=== PATIENT | male | born 1985 | race Caucasian/White ===

== ENCOUNTER 2019-05-10 16:19 | Inpatient (IN) | payer MEDICAID ==
[2019-05-10] MEDS ORDERED: Sodium Chloride 0.9% 1,000 ML IV ONE (16:34)
--- NOTE | 2019-05-10 16:41 | ED Physician Chart ---
ED Chief Complaint/HPI - Patient Information Date Seen:: 05/10/19 Time Seen:: 16:25 Chief Complaint:: J/G-Tube Dysfunction History of Present Illness:: onset x 3 hours of j/g-tube dysfunction; no report of trauma, H/As, neck pain, C /P, SOB, Abd. Pain, A/N/V/D/C, fever, chills, or urinary s/s; pt's last tetanus shot: < 5 years; UTD Allergies:: Allergies Allergy/AdvReac Type Severity Reaction Status Date / Time Egg Derived Allergy Verified 04/19/19 16:16 Penicillins [PCN] Allergy Verified 04/19/19 16:15 Vitals:: Vital Signs - 8 hr 05/10/19 16:25 Temp 98.3 F HR 66 RR 16 BP 96/38 O2 Sat % 96 Historian:: Patient, EMS Review:: Nurse's Note Reviewed, Old Chart Reviewed, EMS run form Reviewed ED Review of Systems - Review of Systems General/Constitutional: No fever, No chills, No weight loss, No weakness, No diaphoresis, No edema, No loss of appetite Skin: No skin lesions, No rash, No bruising Head: No headache, No light-headedness Eyes: No loss of vision, No pain, No diplopia ENT: No earache, No nasal drainage, No sore throat, No tinnitus Neck: No neck pain, No swelling, No thyromegaly, No stiffness, No mass noted Cardio Vascular: No chest pain, No palpitations, No PND, No orthopnea, No edema Pulmonary: No SOB, No cough, No sputum, No wheezing GI: No nausea, No vomiting, No diarrhea, No pain, No melena, No hematochezia, No constipation, No hematemesis G/U: No dysuria, No frequency, No hematuria, No nacturia Musculoskeletal: No bone or joint pain, No back pain, No muscle pain Endocrine: No polyuria, No polydipsia Psychiatric: No prior psych history, No depression, No anxiety, No suicidal ideation, No homicidal ideation, No auditory hallucination, No visual hallucination Hematopoietic: No bruising, No lymphadenopathy Allergic/Immuno: No urticaria, No angioedema Neurological: No syncope, No focal symptoms, No weakness, No paresthesia, No headache, No seizure, No dizziness, Confusion, No vertigo ED Past Medical History - Past Medical History Obtainable: Yes Past Medical History: HTN, PUD/GERD, Dementia Family History: HTN Social History: Non Smoker, No Alcohol, No Drug Use, Single, Care Facility Surgical History: PEG/GTube Psychiatricy History: Dementia Medication: Reviewed Family Medical History - Family Member Mother History Unknown: Yes ED Physical Exam - Physical Examination General/Constitutional: Awake, Well-developed, well-nourished, Alert, No distress, GCS 15, Non-toxic appearing, Ambulatory Head: Atraumatic Eyes: Lids, conjuctiva normal, PERRL, EOMI Skin: Nl inspection, No rash, No skin lesions, No ecchymosis, Well hydrated, No lymphadenopathy ENMT: External ears, nose nl, TM canals nl, Nasal exam nl, Lips, teeth, gums nl , Oropharynx nl, Tonsils nl Neck: Nontender, Full ROM w/o pain, No JVD, No nuchal rigidity, No bruit, No mass, No stridor Respiratory: Nl effort/Exclusion, Clear to Auscultation, No Wheeze/Rhonchi/Rales Cardio Vascular: RRR, No murmur, gallop, rubs, NL S1 S2, Carotid/Femoral/Distal pulses equal bilaterally GI: No tenderness/rebounding/guarding, No organomegaly, No hernia, Normal BS's, Nondistended, No mass/bruits, No McBurney tenderness Other GI comments:: + J/G-Tube Dysfunction; no pulsatile masses : No CVA tenderness Extremities: No tenderness or effusion, Full ROM, normal strength in all extremities, No edema, Normal digits & nails Neuro/Psych: Alert/oriented, DTR's symmetric, Normal sensory exam, Normal motor strength, Judgement/insight normal, Mood normal, Normal gait, No focal deficits Misc: Normal back, No paraspinal tenderness ED Septic Shock - . Is Septic Shock (SBP<90, OR Lactate>4 mmol\L) present?: No - <6hrs of presentation: Vital Signs: Vital Signs - 8 hr 05/10/19 16:25 Temp 98.3 F HR 66 RR 16 BP 96/38 O2 Sat % 96 ED Reassessment (Disposition) - Reassessment Reassessment Condition:: Improved - Diagnosis Diagnosis:: J/G-Tube Dysfunction; Hypovolemia; Hypotension; Dehydration; Hypoalbuminemia; Hypokalemia
[2019-05-10 17:09] LABS: % BASOPHILS 0.1 % (0.0-2.0); % LYMPHOCYTES 23.5 % (20.0-50.0); % MONOCYTES 3.5 % (2.0-10.0); % NEUTROPHILS 66.9 % (40.0-80.0); EOSINOPHILE ABSOLUTE 0.4 Th/cmm (0.1-0.4); HEMATOCRIT 39.7 % (41.0-60); HEMOGLOBIN 13.6 gm/dL (12-16); LYMPHOCYTE ABSOLUTE 1.7 Th/cmm (1.5-3.0); MEAN CELL VOLUME 90.8 fl (80-99); MEAN CORPUSCULAR HGB CONC 34.1 pg (28.0-36.0); MONOCYTE ABSOLUTE 0.3 Th/cmm (0.3-1.0); NEUTROPHILE ABSOLUTE 4.9 Th/cmm (1.8-8.0); PLATELET COUNT 241 Th/cmm (150-400); RED BLOOD COUNT 4.38 Mil/cmm (4.30-5.70); RED CELL DISTRIBUTION WIDTH 12.6 % (11.5-20.0); WHITE BLOOD COUNT 7.3 Th/cmm (4.8-10.8)
[2019-05-10 17:21] LABS: INR 0.95 (0.5-1.4)
[2019-05-10 17:27] LABS: ALB/GLOB RATIO 1.1 (1.0-1.8); ALBUMIN 3.9 gm/dL (4.2-5.5); ALKALINE PHOSPHATASE 102 U/L (34-104); AMYLASE SERUM 86 U/L (29-103); ANION GAP 11.4 (7.0-16.0); BILIRUBIN,TOTAL 0.4 mg/dL (0.3-1.0); BUN - UREA NITROGEN 21 mg/dL (7-25); CHLORIDE 100 mEq/L (98-107); CREATININE KINASE 33 U/L (30-223); GFR AFRICAN-AMERICAN > 60.0 ml/min (>90); GFR NON AFRICAN-AMERICAN > 60.0 ml/min; GLUCOSE 85 mg/dL (70-105); LIPASE 29 U/L (11-82); POTASSIUM SERUM 3.4 mEq/L (3.5-5.1); SGOT 24 U/L (13-39); SGPT/ALT 23 U/L (7-52); SODIUM SERUM 138 mEq/L (136-145); TOTAL PROTEIN,SERUM 7.4 gm/dL (6.0-8.3)
[2019-05-10] MEDS ORDERED: Potassium Chloride 20 mEq ER Tab PO ONE (17:34)
[2019-05-10] MEDS ORDERED: Magnesium Hydroxide (MOM) 30 mL UDC GT PRN (22:02)
[2019-05-10] MEDS ORDERED: Fleet Enema 135 mL RC PRN (22:02)
[2019-05-10] MEDS ORDERED: Non-Formulary Item 1 EA (Acetaminophen [Acetaminophen Er] 650 MG) PO PRN (22:02)
[2019-05-10] MEDS ORDERED: Albuterol Nebulizer 2.5mg/3mL HHN PRN (22:04)
[2019-05-10] MEDS ORDERED: Morphine Sulfate 2 mg/mL 1mL Syr IVP PRN (22:04)
[2019-05-10] MEDS ORDERED: Ipratropium Neb 0.5 mg/2.5 mL UD HHN PRN (22:04)
[2019-05-10] MEDS: D5-0.9%NS 1,000 ML IV SCH (23:00)
--- NOTE | 2019-05-11 02:05 | History & Physical ---
ADMIT DATE: 05/10/2019 CHIEF COMPLAINT: Malfunctioning G-tube. HISTORY OF PRESENT ILLNESS: This is a 33-year-old male with history of cerebral palsy, hypertension, acid reflux, and dysphagia with GJ tube. Apparently, the G-tube is not working, the J-tube is barely opened, unable to provide the patient with nutrition as well as medication. The patient was sent to the ER, noted to have low blood pressure and unable to change the GJ-tube as well. At that time, the patient needed to be admitted for further management. The patient is nonverbal and noncommunicative. PAST MEDICAL HISTORY: As mentioned in the history of present illness. PAST SURGICAL HISTORY: Status post GJ tube placement. MEDICATIONS: Tylenol, Zofran, Dulcolax, Dexilant, Colace, iron, magnesium, metoprolol, MiraLax, and potassium. ALLERGIES: PENICILLIN. SOCIAL HISTORY: This is limited. FAMILY HISTORY: Noncontributory. REVIEW OF SYSTEMS: This is limited secondary to the patient's current mental status. We will try to obtain more detailed review of systems at a later date by talking to family members. The patient is requiring 24-hour total care. The patient is from [facility], . We will try to get more information from family members as well as from [facility]. PHYSICAL EXAMINATION: VITAL SIGNS: Blood pressure is 96/38, respirations 16, pulse is 68, and temperature is 98.3. GENERAL: This is a middle-aged male, who appears chronically ill. NECK: Supple. HEENT: Bilateral temporal wasting. LUNGS: Equal breath sounds, few rhonchi. HEART: Regular rate and rhythm without appreciable murmur. ABDOMEN: Soft, globular. Positive GJ tube. EXTREMITIES: Positive excoriation contracture. NEUROLOGIC: Limited. LABORATORY DATA: WBC is 7, hemoglobin is 13, and platelets 241. INR is 0.9. Sodium is 138, potassium is 3.4, BUN is 25, creatinine 1.0, albumin is 3.9. ASSESSMENT: Malfunctioning GJ tube, electrolyte abnormalities, hypokalemia, hypovolemia, low albumin, mental retardation, gastroesophageal reflux disease, and history of hypertension. PLAN: Continue the patient on aggressive IV hydration. Continue proton pump inhibitor. We will refer the patient to GI for GJ placement. We will correct electrolyte abnormalities. We will continue to monitor the patient closely. JOB# [id number]
[2019-05-11] MEDS ORDERED: Heparin Sod 5,000Units/ML 5,000 UNITS/ML VIAL ONE (06:21)
[2019-05-11] MEDS: Heparin Sod 5,000Units/ML 5,000 UNITS/ML VIAL SUBQ SCH ×3 (06:23→20:48)
[2019-05-11] MEDS ORDERED: DEXLANSOPRAZOLE 30 MG GT SCH (09:00)
[2019-05-11] MEDS: Potassium Chloride Elixir 20 mEq /15 mL UDC GT SCH ×2 (10:15→16:46)
[2019-05-11] MEDS: Ferrous Sulfate 300 MG/5 ML UDC GT SCH ×3 (10:15→20:14)
[2019-05-11] MEDS: Pantoprazole 40 mg/Packet GT SCH ×2 (10:15→16:45)
[2019-05-11] MEDS: POLYETHYLENE GLYCOL 3350 17 GM PACK GT SCH (10:15)
[2019-05-11 12:06] VITALS: BP 111/59
[2019-05-11 13:54] LABS: URINE SOURCE CLEAN C
[2019-05-11 13:56] LABS: URINE BILIRUBIN NEGATIVE (NEGATIVE); URINE BLOOD NEGATIVE (NEGATIVE); URINE GLUCOSE (UA) NEGATIVE (NEGATIVE); URINE KETONE NEGATIVE (NEGATIVE); URINE LEUKOCYTE ESTERASE NEGATIVE (NEGATIVE); URINE NITRATE NEGATIVE (NEGATIVE); URINE PH 7.5 (4.6 - 8.0); URINE PROTEIN NEGATIVE (NEGATIVE); URINE UROBILINOGEN 0.2 E.U./dL (0.2 - 1.0)
[2019-05-11 13:57] LABS: URINE CLARITY CLEAR (CLEAR); URINE COLOR YELLOW
[2019-05-11 13:58] LABS: URINE MICROSCOPIC INDICATED? YES
[2019-05-11 14:04] LABS: URINE BACTERIA FEW /hpf (NONE SEEN); URINE EPITHELIAL CELLS FEW /lpf (FEW); URINE WBC 0-2 /hpf (0-5)
--- NOTE | 2019-05-11 14:48 | Internal Medicine Prog Note ---
Internal Medicine Subjective - Subjective Patient seen and examined:: with staff, chart reviewed Patient is:: awake, non-verbal, non-interactive, in bed, stares blankly Patient Complaints of:: congestion Per staff patient has:: no adverse event, no episodes of fall Internal Medicine Objective - Results Result Diagrams: 05/10/19 17:00 05/10/19 17:00 Recent Labs: Laboratory Last Values WBC 7.3 Th/cmm (4.8-10.8) 05/10/19 17:00 RBC 4.38 Mil/cmm (4.30-5.70) 05/10/19 17:00 Hgb 13.6 gm/dL (12-16) 05/10/19 17:00 Hct 39.7 % (41.0-60) L 05/10/19 17:00 MCV 90.8 fl (80-99) 05/10/19 17:00 MCH 31.0 pg (26.0-30.0) H 05/10/19 17:00 MCHC Differential 34.1 pg (28.0-36.0) 05/10/19 17:00 RDW 12.6 % (11.5-20.0) 05/10/19 17:00 Plt Count 241 Th/cmm (150-400) 05/10/19 17:00 MPV 8.5 fl 05/10/19 17:00 Neutrophils % 66.9 % (40.0-80.0) 05/10/19 17:00 Lymphocytes % 23.5 % (20.0-50.0) 05/10/19 17:00 Monocytes % 3.5 % (2.0-10.0) 05/10/19 17:00 Eosinophils % 6.0 % (0.0-5.0) H 05/10/19 17:00 Basophils % 0.1 % (0.0-2.0) 05/10/19 17:00 PT 9.9 SECONDS (9.5-11.5) 05/10/19 17:00 INR 0.95 (0.5-1.4) 05/10/19 17:00 PTT (Actin FS) 28.1 SECONDS (26.0-38.0) 05/10/19 17:00 Sodium 138 mEq/L (136-145) 05/10/19 17:00 Potassium 3.4 mEq/L (3.5-5.1) L 05/10/19 17:00 Chloride 100 mEq/L (98-107) 05/10/19 17:00 Carbon Dioxide 30.0 mEq/L (21.0-31.0) 05/10/19 17:00 Anion Gap 11.4 (7.0-16.0) 05/10/19 17:00 BUN 21 mg/dL (7-25) 05/10/19 17:00 Creatinine 1.0 mg/dL (0.7-1.3) 05/10/19 17:00 Est GFR ( Amer) > 60.0 ml/min (>90) 05/10/19 17:00 Est GFR (Non-Af Amer) > 60.0 ml/min 05/10/19 17:00 BUN/Creatinine Ratio 21.0 05/10/19 17:00 Glucose 85 mg/dL (70-105) 05/10/19 17:00 POC Glucose 104 MG/DL (70 - 105) 05/11/19 09:53 Whole Bld Lactic Acid 1.03 mmol/L (0.60-1.99) 05/10/19 17:00 Calcium 9.0 mg/dL (8.6-10.3) 05/10/19 17:00 Total Bilirubin 0.4 mg/dL (0.3-1.0) 05/10/19 17:00 AST 24 U/L (13-39) 05/10/19 17:00 ALT 23 U/L (7-52) 05/10/19 17:00 Alkaline Phosphatase 102 U/L (34-104) 05/10/19 17:00 Creatine Kinase 33 U/L (30-223) 05/10/19 17:00 Troponin I 0.01 ng/mL (0.01-0.05) 05/10/19 17:00 Total Protein 7.4 gm/dL (6.0-8.3) 05/10/19 17:00 Albumin 3.9 gm/dL (4.2-5.5) L 05/10/19 17:00 Globulin 3.5 gm/dL 05/10/19 17:00 Albumin/Globulin Ratio 1.1 (1.0-1.8) 05/10/19 17:00 Amylase 86 U/L (29-103) 05/10/19 17:00 Lipase 29 U/L (11-82) 05/10/19 17:00 Urine Source CLEAN C 05/11/19 13:52 Urine Color YELLOW 05/11/19 13:52 Urine Clarity CLEAR (CLEAR) 05/11/19 13:52 Urine pH 7.5 (4.6 - 8.0) 05/11/19 13:52 Ur Specific Ronan 1.015 (1.005-1.030) 05/11/19 13:52 Urine Protein NEGATIVE mg/dL (NEGATIVE) 05/11/19 13:52 Urine Glucose (UA) NEGATIVE mg/dL (NEGATIVE) 05/11/19 13:52 Urine Ketones NEGATIVE mg/dL (NEGATIVE) 05/11/19 13:52 Urine Blood NEGATIVE (NEGATIVE) 05/11/19 13:52 Urine Nitrate NEGATIVE (NEGATIVE) 05/11/19 13:52 Urine Bilirubin NEGATIVE (NEGATIVE) 05/11/19 13:52 Urine Urobilinogen 0.2 E.U./dL (0.2 - 1.0) 05/11/19 13:52 Ur Leukocyte Esterase NEGATIVE (NEGATIVE) 05/11/19 13:52 Urine WBC 0-2 /hpf (0-5) 05/11/19 13:52 Ur Epithelial Cells FEW /lpf (FEW) 05/11/19 13:52 Urine Bacteria FEW /hpf (NONE SEEN) 05/11/19 13:52 Urine Mucus FEW /lpf (FEW) 05/11/19 13:52 - Physical Exam Vitals and I&O: Vital Signs Temp 97.8 F 05/11/19 14:00 Pulse 59 05/11/19 14:00 Resp 21 05/11/19 14:00 BP 92/51 05/11/19 14:00 Pulse Ox 99 05/11/19 14:00 Intake & Output 05/10/19 05/11/19 05/11/19 18:59 06:59 18:59 Intake Total 1999 Balance 1999 Weight (lbs) 41.73 kg 40.823 kg 36.242 kg Intake: Intake, IV Amount 1999 Other: # Voids 3 Weight Source Bedscale Estimated Active Medications: Current Medications Acetaminophen (Tylenol 650mg/20.3ml Suspension) 650 mg GT Q6H PRN PRN Reason: TEMP 101 OR MORE / MILD PAIN Stop: 07/10/19 05:30 Albuterol Sulfate (Albuterol 2.5mg/3ml Neb Ud) 2.5 mg HHN Q2HRT PRN PRN Reason: Shortness of Breath or Wheeze Stop: 07/09/19 22:03 Bisacodyl (Dulcolax 10 Mg Supp) 10 mg RC Q2D PRN PRN Reason: Constipation Stop: 07/09/19 22:01 Docusate Sodium (Colace) 100 mg GT HS JENNA Stop: 07/10/19 20:59 Ferrous Sulfate (Iron) 220 mg GT TID JENNA Stop: 07/10/19 08:59 Last Admin: 05/11/19 10:15 Dose: Not Given Heparin Sodium (Porcine) (Heparin) 5,000 units SUBQ Q12HR JENNA Stop: 07/10/19 08:59 Last Admin: 05/11/19 10:13 Dose: Not Given Dextrose/Sodium Chloride (D5-0.9%Ns) 1,000 mls @ 80 mls/hr IV .[id number] [facility] Stop: 07/09/19 22:14 Last Admin: 05/10/19 23:00 Dose: 80 mls/hr Ipratropium [place] (Atrovent Neb 0.5mg/2.5ml) 0.5 mg HHN Q2HRT PRN PRN Reason: Shortness of Breath or Wheeze Stop: 07/09/19 22:03 Magnesium Hydroxide (Milk Of Magnesia) 30 ml GT DAILY PRN PRN Reason: Constipation Stop: 07/09/19 22:01 Metoclopramide HCl (Reglan) 5 mg GT Q8HR PRN PRN Reason: Vomiting Stop: 07/10/19 05:59 Morphine Sulfate (Morphine) 2 mg IVP Q4H PRN PRN Reason: Pain (Severe) Stop: 07/09/19 22:03 Ondansetron HCl (Zofran) 4 mg IV Q8H PRN PRN Reason: Nausea / Vomiting Stop: 07/09/19 22:03 Pantoprazole Sodium (Protonix) 40 mg GT BID [facility] Stop: 07/10/19 08:59 Last Admin: 05/11/19 10:15 Dose: Not Given Polyethylene Glycol (Miralax) 17 gm GT DAILY [facility] Stop: 07/10/19 08:59 Last Admin: 05/11/19 10:15 Dose: Not Given Potassium Chloride (Potassium Chloride Elixir) 26.6 meq GT BID JENNA Stop: 07/10/19 08:59 Last Admin: 05/11/19 10:15 Dose: Not Given Sodium Phosphate (Fleet Enema) 135 ml RC Q3D PRN PRN Reason: Constipation Stop: 07/09/19 22:01 General: demented, thin, bilateral temporal wasting, appears older HEENT: NC/AT, PERRLA Neck: Supple, No JVD Lungs: CTAB Cardiovascular: RRR, Normal S1, Normal S2, without murmur Abdomen: soft, thin, +GT, positive bowel sound Extremities: excoriation, contracture - Procedures Procedures: Procedures Procedure Code Date INSERTION OF FEEDING DEVICE INTO STOMACH, PERC APPROACH [id number] 04/19/19 Internal Medicine Assmt/Plan - Assessment Assessment: ASSESSMENT: Malfunctioning GJ tube, electrolyte abnormalities, hypokalemia, hypovolemia, low albumin, mental retardation, gastroesophageal reflux disease, and history of hypertension. - Plan Plan: PLAN: Continue the patient on aggressive IV hydration. Continue proton pump inhibitor. We will refer the patient to GI for GJ placement. We will correct electrolyte abnormalities. We will continue to monitor the patient closely. Nutritional Asmnt/Malnutr-PDOC - Dietary Evaluation Malnutrition Findings (Please click <Entered> for more info): Nutritional Asmnt/Malnutrition Start: 05/11/19 14: 39 Text: Status: Complete Freq: Protocol: Document 05/11/19 14:39 NENA (Rec: 05/11/19 14:43 NENA [id number]) Nutritional Asmnt/Malnutrition Patient General Information Nutritional Screening High Risk Diagnosis Feeding Tube Malfunction Pertinent Medical Hx/Surgical Hx CP, HTN, acid reflux, dysphagia, J-tube placement Subjective Information Pt is a 33-year-old male admitted on 05/10 d/t 3 hours J -tube dysfunction. Pt has limited movement and is swallowing impaired with a J- tube. J-tube repair is scheduled for tomorrow 05/12, per RN note (05/11). HT: 46 WT: 90 LB (40.91kg) BMI: 21.70 (Normal) GI: WNL, Soft, non-tender, round BM: Not noted I/O: 2000/Not Noted Skin: WNL, warm, dry, elastic, intact Dylan: 12 Diet Order: Jevity 1.2 @47ml/ hr x20 hrs Estimated Energy Needs: (Adult , CBW) 4449-4875 kcals ( 25-30 kcals/ kg) 37-41g Pro (0.9-1.0 g/kg) 7898-8490 ml (35-40 ml/kg) Current Diet Order/ Nutrition Support Jevity 1.2 @47ml/hr x20 hrs Pertinent Medications Albuterol (PRN), Dulcolax (PRN ), D5-0.9%Ns, Colace, Ferrous Sulfate, MOM (PRN), Reglan ( PRN), Zofran (PRN), Protonix, Miralax, Potassium Chloride Elixir, Fleet Enema (PRN) Pertinent Labs 05/10: Hgb/Hct 13.6/39.7, K 3.4 , Alb 3.9 Nutritional Hx/Data Height 1.37 m Height (Calculated Centimeters) 137.2 Current Weight (lbs) 40.823 kg Weight (Calculated Kilograms) 40.8 Weight (Calculated Grams) 06194.3 [place] Body Weight 94 LB (42.73kg) % [place] Body Weight 96 Body Mass Index (BMI) 21.7 Weight Status Approriate GI Symptoms Last BM Not noted Difficult in: Swallowing Skin Integrity/Comment: Skin: WNL, warm, dry, elastic, intact Dylan: 12 Estimated Nutritional Goals BEE in Kcals: Using Current wt Calories/Kcals/Kg 25-30 Kcals Calculated 7002-8773 Protein: Using Current wt Protein g/k.9-1.0 Protein Calculated 37-41 Fluid: ml 2619-3402 ml (35-40 ml/kg) Nutritional Problem 1. Problem Problem Inadequate energy intake Etiology r/t J-tube malfunction Signs/Symptoms: aeb J-tube repair is scheduled for tomorrow 05/12, per RN note (05/11). Malnutrition Related to Morbid Obesity Malnutrition related to morbid obesity No Intervention/Recommendation Comments Recommendation to continue with Jevity 1.2 @47ml/hr x20 hrs once medically appropriate to provide 1128 kcals, 52g Pro, and 759ml free watet to meet 100% estimated kcal and 100+% estimated Pro needs. Expected Outcomes/Goals Expected Outcomes/Goals 1. Monitor wt, nutrition related labs, and skin integrity. 2. F/U as high risk in 2-3 days, 05/13-05/14
[2019-05-11] MEDS: D5-0.9%NS 1,000 ML IV SCH (18:05)
[2019-05-11] MEDS ORDERED: Docusate Sodium 100 mg/10 mL UD GT SCH (21:00)
--- NOTE | 2019-05-11 23:09 | Consultation ---
DATE OF CONSULTATION: 05/11/2019 INPATIENT GI CONSULTATION CONSULTING PHYSICIAN: Dr. Claudio. REASON FOR CONSULTATION: GJ-tube malfunction. HISTORY OF PRESENT ILLNESS: The patient is a 33-year-old male with history of cerebral palsy, acid reflux disease, dysphagia and hypertension, admitted to the hospital, given GJ-tube is clogged. The patient is well known to our service and has been admitted to the multiple surrounding hospitals many times for the same issue. We have had to replace his GJ-tube several times as the GJ-tube is often clogged for various reasons. At the current time, the J port is not able to transport any of the tube feeds, and thus, he has been admitted to the hospital for this to be replaced. He is not able to give any other history at the current time, as he is nonverbal. PAST MEDICAL HISTORY: Cerebral palsy, dysphagia, GERD. PAST SURGICAL HISTORY: Multiple replacements of the GJ tube. FAMILY HISTORY: Noncontributory. SOCIAL HISTORY: The patient requires 24-hour care at a nursing facility. No documented history of alcoholism or illicit drug use. ALLERGIES: REPORTED ALLERGY TO PENICILLIN. REVIEW OF SYSTEMS: Not possible given the patient is unable to participate in the interview. CURRENT MEDICATIONS: Include Tylenol, albuterol, bisacodyl, Colace, iron, heparin subcutaneously, magnesium, Reglan, ondansetron, and polyethylene glycol. PHYSICAL EXAMINATION: VITAL SIGNS: Blood pressure is 96/40, pulse is 57 beats per minute, respiratory rate of 16, and temperature 96.9. GENERAL: The patient is on his back. Alert and oriented x 0. He appears to not be in acute distress. HEAD, EARS, EYES, NOSE, AND THROAT: Abnormal facies noted. Pupils are equal and reactive. Extraocular muscles are intact. Dry mucous membranes with poor dentition. NECK: Supple, no JVD or thyromegaly. CHEST: Clear to auscultation bilaterally. CARDIOVASCULAR: S1, S2 are present, regular rate and rhythm. ABDOMEN: The GJ-tube is clean, dry and intact. No guarding or rebound, otherwise soft. EXTREMITIES: Somewhat contracted. No edema. Pulses are not present. SKIN: No jaundice. LABORATORY DATA: White blood cell count 7.3, hemoglobin is 13.6, platelet count 241. INR 0.9. Sodium 138, BUN 21, creatinine 1.0, AST 24, ALT 23, total bilirubin 0.4, lipase 29. No imaging has been done. IMPRESSION: This is a 33-year-old male with history of cerebral palsy, dysphagia requiring a GJ-tube admitted to the hospital with the J-port clogged on his GJ tube. PROBLEM: 1. GJ-tube malfunction. 2. Cerebral palsy. 4. Dysphagia. DISCUSSION: As the J-port is not functioning at the current time, the patient will likely need another GJ-tube replacement, which he has required multiple times. We will plan to do this tomorrow morning in the GI lab as this requires endoscopy. RECOMMENDATIONS: 1. Hold feedings for now, we will plan for GJ-tube placement tomorrow morning. 2. We will change the Reglan to p.r.n. as I do not think he really needs a scheduled dose of Reglan with the feedings going into the jejunum directly, and this will avoid potential side effects. 3. IV fluids as per primary. Thank you for allowing me to participate in his care. Please call with any questions. JOB# [id number]
[2019-05-12 04:42] LABS: % BASOPHILS 1.5 % (0.0-2.0); % MONOCYTES 5.8 % (2.0-10.0); % NEUTROPHILS 54.7 % (40.0-80.0); BASOPHILE ABSOLUTE 0.1 Th/cumm (0-0.2); EOSINOPHILE ABSOLUTE 0.6 Th/cmm (0.1-0.4); HEMATOCRIT 39.6 % (41.0-60); HEMOGLOBIN 13.6 gm/dL (12-16); LYMPHOCYTE ABSOLUTE 1.7 Th/cmm (1.5-3.0); MEAN CELL VOLUME 91.2 fl (80-99); MEAN CORPUSCULAR HEMOGLOBIN 31.2 pg (26.0-30.0); MEAN CORPUSCULAR HGB CONC 34.2 pg (28.0-36.0); MONOCYTE ABSOLUTE 0.3 Th/cmm (0.3-1.0); NEUTROPHILE ABSOLUTE 3.3 Th/cmm (1.8-8.0); PLATELET COUNT 231 Th/cmm (150-400); RED BLOOD COUNT 4.34 Mil/cmm (4.30-5.70); RED CELL DISTRIBUTION WIDTH 12.5 % (11.5-20.0)
[2019-05-12 04:52] LABS: INR 0.99 (0.5-1.4)
[2019-05-12 04:58] LABS: ANION GAP 12.6 (7.0-16.0); BUN - UREA NITROGEN 10 mg/dL (7-25); CALCIUM SERUM 8.4 mg/dL (8.6-10.3); CARBON DIOXIDE 24.9 mEq/L (21.0-31.0); CHLORIDE 105 mEq/L (98-107); CREATININE - SERUM 0.8 mg/dL (0.7-1.3); GFR AFRICAN-AMERICAN > 60.0 ml/min (>90); GFR NON AFRICAN-AMERICAN > 60.0 ml/min; GLUCOSE 109 mg/dL (70-105); SODIUM SERUM 140 mEq/L (136-145)
[2019-05-12 05:16] LABS: POTASSIUM SERUM 2.5 mEq/L (3.5-5.1)
[2019-05-12] MEDS: D5-0.9%NS 1,000 ML IV SCH ×2 (05:37→14:22)
[2019-05-12] MEDS ORDERED: Potassium Chloride 40 MEQ, Lidocaine 1% 20mL Vial 25 MG in Sodium Chloride 0.9% 250 ML IV ONE (07:47)
[2019-05-12] MEDS: Potassium Chloride Elixir 20 mEq /15 mL UDC GT SCH (08:00)
[2019-05-12] MEDS ORDERED: Propofol 10 mg/mL 20mL Vial **SURGERY USE ONLY IV ONE (08:10)
[2019-05-12] MEDS ORDERED: Lidocaine 2% Gel 5 mL TP ONE (08:10)
[2019-05-12] MEDS ORDERED: Potassium Chloride Elixir 20 mEq /15 mL UDC GT ONE ×2 (09:42→15:00)
[2019-05-12] MEDS: Ferrous Sulfate 300 MG/5 ML UDC GT SCH ×2 (09:56→14:20)
[2019-05-12] MEDS: Pantoprazole 40 mg/Packet GT SCH (09:56)
[2019-05-12] MEDS: POLYETHYLENE GLYCOL 3350 17 GM PACK GT SCH (09:56)
[2019-05-12] MEDS: Heparin Sod 5,000Units/ML 5,000 UNITS/ML VIAL SUBQ SCH (09:57)
--- NOTE | 2019-05-12 12:15 | Operative Report ---
DATE OF SURGERY: 05/12/2019 PROCEDURE PERFORMED: EGD with GJ tube replacement. ENDOSCOPIST: Curt Burroughs M.D. PREOPERATIVE DIAGNOSIS: J tube clogging and malfunction. POSTOPERATIVE DIAGNOSIS: Successful GJ replacement. INDICATION: The patient is a 33-year-old male with cerebral palsy, developmental delay. He has a long history of requiring GJ tube for enteral feeding as he has gastroparesis. His J port of the GJ tube was noted to be clogged at his nursing facility and thus he was admitted to the hospital for this to be replaced. CONSENT: Informed consent was obtained from the patient's health care proxy. The risks and benefits of the procedure were discussed include but not limited to infection, bleeding, perforation, need for further surgery, cardiopulmonary complications, missed pathology and . The patient's healthcare proxy indicated they understood these risks, wished to go forward with the procedure and signed the consent form. ANESTHESIA: The procedure was done with the assistance of an anesthesiologist providing propofol for sedation. PROCEDURE IN DETAIL: The patient was hooked to appropriate monitoring devices including blood pressure, pulse and pulse oximetry and IV was in place. Oxygen was delivered via nasal cannula throughout the procedure. Anesthesia was administered by Dr. Maher of the Anesthesiology Department. The patient was in the supine position. A pediatric gastroscope was introduced into the gastrocutaneous fistula and advanced into the duodenum and then as far into the jejunum as the scope would allow. At this point, a Savary wire was inserted through the working channel of the pediatric gastroscope and using a slow exchange technique, the Savary wire was left within the jejunum and the scope was slowly pulled out. Next, a new 22-Mosotho GJ tube was inserted over the Savary wire into the jejunum using a slow exchange technique and at the completion of this, the gastric balloon was inflated. The pediatric gastroscope was then inserted into the mouth and guided under direct visualization into the esophagus and stomach and confirmed that the tube was entering through the gastrocutaneous fistula and then going straight down into the pyloric channel and through into the jejunum. The gastric balloon appeared to be in the correct location within the stomach: The procedure was then complete. Instrumentation was withdrawn. RECOMMENDATIONS: 1. The new GJ-tube can be used immediately. The J-port should be used for tube feeding. The G the port can be used for any oral medications. I would try to avoid using medications through the J port as this can easily clog this area. 2. Flush both ports with 100 mL of water every 8 hours. 3. Check the gastric residual every 8 hours and the J port residuals every hour. Hold the tube feeding if the J port residual is greater than 100 mL. Thank you for allowing me to participate in his care. Please call with any questions. JOB# [id number]
--- NOTE | 2019-05-12 17:00 | Discharge Summary ---
DATE OF DISCHARGE: 05/12/2019 CHIEF COMPLAINT: Malfunctioning GJ tube. FINAL DIAGNOSES: Replacement of malfunctioning GJ tube, electrolyte abnormalities, hypovolemia, low albumin, mental retardation, gastroesophageal reflux disease and history of hypertension. HISTORY OF PRESENT ILLNESS: This is a 33-year-old male with history of cerebral palsy, hypertension, acid reflux, dysphagia with GJ tube. Apparently, the G-tube is not working. J-tube is barely open. The patient unable to be given medication as well as nutrition. This was unable to be replace in the ER, hence the patient admitted for further management. PHYSICAL EXAMINATION: VITAL SIGNS: Blood pressure 110/56, respirations 18, pulse 91, temperature 97.6. GENERAL: ____ male, appears his stated age. NECK: Supple. LUNGS: Equal breath sounds, few rhonchi. HEART: Regular rate and rhythm without appreciable murmur. ABDOMEN: Soft, globular. Positive GJ tube. EXTREMITIES: Positive excoriation. NEUROLOGIC: Limited. LABORATORY DATA: ____. HOSPITAL COURSE: The patient was admitted to medical floor, continue aggressive IV hydration. Electrolytes were adjusted. The patient was referred to Dr. Burroughs and arrangement made for GJ placement, likely being supplemented and nutrition is being started. The patient ____. CONDITION ON DISCHARGE: Fair. DISCHARGE INSTRUCTIONS: The patient to continue current management. We will ____ at the nursing facility. JOB# [id number]
== END 2019-05-12 15:12 | DRG 222 ==
LOC: ER 16:19 → MSI 20:30
PROVIDERS: ADMIT Internal Medicine; ATTEND Internal Medicine
PROC: 0DP63UZ Removal of Feeding Device from Stomach, Percutaneous Approach (ICD-10-PCS; principal; 2019-05-12)
PROC: 0DH63UZ Insertion of Feeding Device into Stomach, Percutaneous Approach (ICD-10-PCS; 2019-05-12)
DX: K94.23 Gastrostomy malfunction (principal); I95.9 Hypotension, unspecified; R53.2 Functional quadriplegia; F03.90 Unspecified dementia, unspecified severity, without behavioral disturbance, psychotic disturbance, mood disturbance, and anxiety; E88.09 Other disorders of plasma-protein metabolism, not elsewhere classified; R13.10 Dysphagia, unspecified; E87.6 Hypokalemia; F79 Unspecified intellectual disabilities; K21.9 Gastro-esophageal reflux disease without esophagitis; I10 Essential (primary) hypertension; E86.0 Dehydration; Y92.89 Other specified places as the place of occurrence of the external cause; G80.9 Cerebral palsy, unspecified; Y83.3 Surgical operation with formation of external stoma as the cause of abnormal reaction of the patient, or of later complication, without mention of misadventure at the time of the procedure; Z88.0 Allergy status to penicillin; Z91.012 Allergy to eggs
CPT/HCPCS: 36415-UA; 80048-TC; 80053-TC; 81001-TC; 82150-TC; 82550-TC; 82948-90; 83605; 83690-TC; 83735-TC; 84484-TC; 85025-TC; 85610-TC; 85730-TC; J1644; J2001; J2704; J3480; J7030; J7042; Z7610